=== PATIENT | male | born 1965 | race Caucasian/White ===

== ENCOUNTER 2025-01-14 07:27 | Inpatient (IN) | payer MEDICAID ==
[~2025-01-14] VITALS: Ht 172.7 cm; Wt 65.8 kg
[2025-01-14 07:33] VITALS: O2SAT 98
[2025-01-14 08:22] LABS: HEMATOCRIT. 41.6 % (42.0-52.0); HEMOGLOBIN. 14.1 g/dL (14.0-18.0); MEAN PLATELET VOLUME 8.0 fl (7.4-10.4); PLATELET 310 x1000/uL (130-400); RED BLOOD CELL COUNT 4.78 mill/uL (4.7-6.1); RED CELL DISTRIBUTION WIDTH 13.1 % (11.6-14.6)
[2025-01-14 08:39] LABS: CREATININE 1.0 mg/dL (0.6-1.3)
[2025-01-14 08:40] LABS: UREA NITROGEN BLOOD 11 mg/dL (9-23)
[2025-01-14 08:41] LABS: ASPARTATE AMINOTRANSFERASE 20 IU/L (<34)
[2025-01-14 08:42] LABS: BILIRUBIN DIRECT 0.1 mg/dL (<=3.0); BILIRUBIN TOTAL 0.5 mg/dL (0.1-1.0); PROTEIN TOTAL 7.5 g/dL (6.0-8.3)
[2025-01-14 08:43] LABS: CLARITY URINE CLEAR (CLEAR); COLOR URINE YELLOW (YELLOW); GLUCOSE URINE 3+ (NEGATIVE); KETONES URINE 1+ (NEGATIVE); LEUKOCYTE ESTERASE URINE NEGATIVE (NEGATIVE); NITRITE URINE NEGATIVE (NEGATIVE); OCCULT BLOOD URINE NEGATIVE (NEGATIVE); PH URINE 7.5 (4.5-8.0); PROTEIN URINE 1+ (NEGATIVE); SPECIFIC GRAVITY URINE 1.033 (1.005-1.030); UROBILINOGEN URINE 0.2 E.U./dL (0.2-1.0)
[2025-01-14 08:58] LABS: RBC URINE 0-2 /hpf (0-2); WBC URINE 0-2 /hpf (0-2)
[2025-01-14] MEDS: KETOROLAC 30MG/ML VIAL IM ONE (08:58)
[2025-01-14 08:59] LABS: BACTERIA URINE TRACE; SQUAMOUS EPITHELIAL CELL URINE FEW /lpf (RARE/1+)
[2025-01-14] MEDS: ONDANSETRON HCL 4MG/2ML INJ IV ONE (09:42)
[2025-01-14] MEDS: SODIUM CHLORIDE 0.9% 1,000 ML IV ONE (09:42)
[2025-01-14 09:51] LABS: BAND% 5.0 % (1.0-6.0); LYMPHOCYTES % MANUAL 4.0 % (20.0-50.0); MONOCYTES % MANUAL 4.0 % (2.0-8.0); NEUTROPHILS % MANUAL 87.0 % (45.0-75.0); PLATELET ESTIMATE NORMAL
[2025-01-14] MEDS ORDERED: DEXTROSE 50% WATER 50ML SYRINGE IV PRN (13:15)
[2025-01-14] MEDS ORDERED: HYDRALAZINE 20MG/ML VIAL IV PRN (13:15)
[2025-01-14] MEDS ORDERED: IPRATROPIUM/ALBUTEROL 0.5-3(2.5)MG/3ML NEB HHN PRN (13:15)
[2025-01-14] MEDS ORDERED: ACETAMINOPHEN 325MG TABLET PO PRN ×2 (13:15)
[2025-01-14] MEDS ORDERED: HYDRALAZINE 10 MG in SODIUM CHLORIDE 0.9% 49.5 ML IV PRN (13:30)
[2025-01-14 14:05] VITALS: BP 145/64; PULSE 78; RESP 18; TEMP 36.2; O2SAT 97
[2025-01-14] MEDS: KETOROLAC 15MG/ML VIAL IV PRN (14:39)
[2025-01-14 15:00] VITALS: BP 145/64; PULSE 78; RESP 18; TEMP 36.2512
[2025-01-14] MEDS: BLOOD SUGAR DIAGNOSTIC STRIP TEST SCH (17:08)
[2025-01-14] MEDS: DEXT 5%/0.45% NACL 1000ML 1,000 ML IV SCH (17:51)
[2025-01-14 20:00] VITALS: BP 144/75; PULSE 75; RESP 19; TEMP 36.6; O2SAT 97
[2025-01-14] MEDS: INSULIN LISPRO 100 UNITS/ML SUBCUT SCH (21:03)
[2025-01-15] VITALS: BP 148/73; PULSE 74; RESP 19; TEMP 36.4; O2SAT 97
[2025-01-15 04:00] VITALS: BP 144/78; PULSE 75; RESP 18; TEMP 37; O2SAT 98
[2025-01-15 06:14] LABS: BASOPHILS % 0.1 % (0.0-2.0); EOSINOPHILS % 1.0 % (0.0-5.0); HEMATOCRIT. 40.4 % (42.0-52.0); HEMOGLOBIN. 13.7 g/dL (14.0-18.0); LYMPHOCYTES % 9.8 % (20.0-50.0); MEAN PLATELET VOLUME 8.7 fl (7.4-10.4); MONOCYTES % 9.8 % (2.0-8.0); NEUTROPHILS % 79.3 % (40.0-76.0); PLATELET 255 x1000/uL (130-400); RED BLOOD CELL COUNT 4.63 mill/uL (4.7-6.1); RED CELL DISTRIBUTION WIDTH 13.0 % (11.6-14.6)
[2025-01-15 06:17] LABS: CREATININE 0.9 mg/dL (0.6-1.3); TRIGLYCERIDE 83 mg/dL (0-150); UREA NITROGEN BLOOD 13 mg/dL (9-23)
[2025-01-15 06:18] LABS: LDL CHOLESTEROL 95 mg/dL (5-100)
[2025-01-15 06:19] LABS: PHOSPHORUS 3.9 mg/dL (2.5-4.9); T4 FREE 1.28 ng/dL (0.89-1.76)
[2025-01-15 08:00] VITALS: BP 139/71; PULSE 77; RESP 19; TEMP 36.9; O2SAT 98
[2025-01-15] MEDS: PANTOPRAZOLE SODIUM 40 MG/VIAL IV SCH (08:47)
[2025-01-15] MEDS ORDERED: ONDANSETRON HCL 4MG/2ML INJ IV PRN (11:45)
[2025-01-15 12:00] VITALS: BP 140/70; PULSE 67; RESP 18; TEMP 36.5; O2SAT 98
[2025-01-15] MEDS: DOCUSATE SODIUM 100MG CAPSULE PO SCH (12:30)
[2025-01-15] MEDS: MAGNESIUM 2 G PREMIX 50 ML IV SCH (12:30)
[2025-01-15] MEDS: POLYETHYLENE GLYCOL 3350 (17GM) 1 DOSE PACK PO SCH (14:38)
[2025-01-15 16:00] VITALS: BP 151/76; PULSE 73; RESP 19; TEMP 36.4; O2SAT 97
[2025-01-15 20:00] VITALS: BP 126/69; PULSE 72; RESP 20; TEMP 36.5; O2SAT 98
[2025-01-16] VITALS: BP 150/83; PULSE 76; RESP 20; TEMP 36.2; O2SAT 97
[2025-01-16] MEDS: KETOROLAC 15MG/ML VIAL IV NR (00:01)
[2025-01-16 04:00] VITALS: BP 149/76; PULSE 78; RESP 20; TEMP 36.7; O2SAT 97
[2025-01-16 06:19] LABS: PLATELET 266 x1000/uL (130-400); RED BLOOD CELL COUNT 4.75 mill/uL (4.7-6.1); RED CELL DISTRIBUTION WIDTH 12.7 % (11.6-14.6)
[2025-01-16 06:41] LABS: CREATININE 0.9 mg/dL (0.6-1.3); UREA NITROGEN BLOOD 12 mg/dL (9-23)
[2025-01-16 06:43] LABS: PHOSPHORUS 4.4 mg/dL (2.5-4.9)
[2025-01-16 08:00] VITALS: BP 144/75; PULSE 69; RESP 17; TEMP 36.6; O2SAT 97
[2025-01-16] MEDS ORDERED: POLYETHYLENE GLYCOL 3350 (17GM) 1 DOSE PACK PO SCH (09:00)
[2025-01-16] MEDS: KETOROLAC 15MG/ML VIAL IV PRN (11:42)
[2025-01-16 12:00] VITALS: BP 130/76; PULSE 72; RESP 18; TEMP 36.3; O2SAT 98
[2025-01-16 16:00] VITALS: BP 116/74; PULSE 84; RESP 20; TEMP 36.6; O2SAT 97
[2025-01-16 20:00] VITALS: BP 137/85; PULSE 80; RESP 19; TEMP 36.3; O2SAT 97
[2025-01-17 08:00] VITALS: BP 109/63; PULSE 75; RESP 18; TEMP 36.2; O2SAT 97
[2025-01-17 12:00] VITALS: BP 124/67; PULSE 63; RESP 17; TEMP 36.1; O2SAT 97
[2025-01-17 16:00] VITALS: BP 123/62; PULSE 67; RESP 18; TEMP 36.4; O2SAT 97
[2025-01-17 20:00] VITALS: BP 126/62; PULSE 71; RESP 18; TEMP 36.4; O2SAT 97
[2025-01-18] VITALS: BP 99/58; PULSE 78; RESP 19; TEMP 36.3; O2SAT 98
[2025-01-18 04:00] VITALS: BP 103/61; PULSE 75; RESP 18; TEMP 36.3; O2SAT 98
[2025-01-18 06:17] LABS: BASOPHILS % 0.5 % (0.0-2.0); EOSINOPHILS % 4.1 % (0.0-5.0); HEMATOCRIT. 38.6 % (42.0-52.0); HEMOGLOBIN. 13.1 g/dL (14.0-18.0); LYMPHOCYTES % 9.2 % (20.0-50.0); MEAN PLATELET VOLUME 8.3 fl (7.4-10.4); MONOCYTES % 12.5 % (2.0-8.0); NEUTROPHILS % 73.7 % (40.0-76.0); PLATELET 292 x1000/uL (130-400); RED BLOOD CELL COUNT 4.41 mill/uL (4.7-6.1); RED CELL DISTRIBUTION WIDTH 12.9 % (11.6-14.6)
[2025-01-18 06:31] LABS: CREATININE 0.9 mg/dL (0.6-1.3)
[2025-01-18 06:32] LABS: UREA NITROGEN BLOOD 9 mg/dL (9-23)
[2025-01-18 08:00] VITALS: BP 126/62; PULSE 73; RESP 18; TEMP 36.9; O2SAT 96
[2025-01-18 12:00] VITALS: BP 104/54; PULSE 64; RESP 17; TEMP 36.7; O2SAT 98
[2025-01-18] MEDS ORDERED: METF-1149 MT (12:00)
[2025-01-18] MEDS ORDERED: PROT20 PO (12:00)
[2025-01-18] MEDS ORDERED: ONDA-239 PO (12:00)
[2025-01-18 15:26] VITALS: BP 135/66; PULSE 74; RESP 17; TEMP 98.8
[2025-01-18] MEDS ORDERED: METF-414 MT (16:32)
[2025-01-18] MEDS ORDERED: ATOR40TA70 MT (16:32)
[2025-01-18] MEDS ORDERED: PANT40TA51 MT (16:32)
== END 2025-01-18 16:48 | disposition home or self-care (01) | DRG 247 ==
LOC: ER 08:34 → 6EST 11:52 → EDBEDREQ 11:55 → EDBEDREQTM 11:55 → ENRESERV 12:30
PROVIDERS: ADMIT Internal Medicine; ATTEND Internal Medicine
PROC: 0D9670Z Drainage of Stomach with Drainage Device, Via Natural or Artificial Opening (ICD-10-PCS; principal; 2025-01-14)
DX: K56.699 Other intestinal obstruction unspecified as to partial versus complete obstruction (principal); Z59.00 Homelessness unspecified; E11.65 Type 2 diabetes mellitus with hyperglycemia; K59.00 Constipation, unspecified; K66.0 Peritoneal adhesions (postprocedural) (postinfection); E83.42 Hypomagnesemia; Z79.4 Long term (current) use of insulin; Z79.84 Long term (current) use of oral hypoglycemic drugs
CPT/HCPCS: 36415; 71045; 74018; 74176; 80048; 80061; 80076; 81003; 82962; 83036; 83735; 84100; 84439; 84443; 85025; 85027; 93005; 93970; 96361; 96372; 96374; 99291; A4606; J1815; J1885; J2405; J2470; J3475; J7030